=== PATIENT | female | born 1980 | race Caucasian/White ===

== ENCOUNTER 2019-07-18 17:37 | Emergency (ER) | payer BC ==
[~2019-07-18] VITALS: Ht 167.6 cm; Wt 73.5 kg
[~2019-07-18 17:37] MED LIST: BACTRIM DS TAB1 EACH PO; FLEXERIL PO; IBUPROFEN 600600 M1 PO; LEXAPRO 10 MG T10 M2 PO; NORCO 5-325 TA1 EACH PO; OXYCODONE HCL30 MG; PAXIL10 MG PO; PROMETHAZINE12.5 M1 PO; SUBOXONE 8 MG-1 EAC3 SL; TAMSULOSIN HCL0.4 MG PO; VICOPROFEN 2001 EACH PO; XANAX 0.5 MG0.5 M1 PO; XANAX 1 MG TABLE1 MG PO; XANAX XR1 MG PO; ZOFRAN ODT4 MG PO; ZOLOFT100 MG PO; [UNRECOGNIZED DRUG - REMARK]
[2019-07-18] MEDS ORDERED: ADDERALL 10 MG10 MG PO (17:52)
[2019-07-18] MEDS ORDERED: CLONAZEPAM 0.50.5 M1 PO (17:52)
[2019-07-18] MEDS ORDERED: PROAIR HFA8.5 GM INH (17:53)
[2019-07-18] MEDS ORDERED: NAPROSYN500 MG PO (21:32)
[2019-07-18] MEDS ORDERED: NORCO 5-325 TA1 EAC1 PO (21:32)
[2019-07-18] MEDS ORDERED: FLEXERIL PO (21:32)
[2019-07-18 21:50] VITALS: BP 120/65
== END 2019-07-18 21:50 | disposition home or self-care (01) ==
LOC: M.ERS 17:37
DX: M25.511 Pain in right shoulder (principal); M54.6 Pain in thoracic spine; F41.9 Anxiety disorder, unspecified; F31.9 Bipolar disorder, unspecified; F17.210 Nicotine dependence, cigarettes, uncomplicated; Z90.710 Acquired absence of both cervix and uterus; Z98.890 Other specified postprocedural states; Z88.2 Allergy status to sulfonamides

== ENCOUNTER 2020-09-28 17:20 | Emergency (ER) | payer OTHER ==
[~2020-09-28] VITALS: Ht 167.6 cm; Wt 70.8 kg
[~2020-09-28 17:20] MED LIST changes: +ADDERALL 10 MG10 MG PO; +CLONAZEPAM 0.50.5 M1 PO; +NAPROSYN500 MG PO; +NORCO 5-325 TA1 EAC1 PO; +PROAIR HFA8.5 GM INH
[2020-09-28] MEDS ORDERED: HYDROXYZINE HCL25 M2 PO (17:35)
[2020-09-28 17:54] LABS: URINE BILIRUBIN NEGATIVE (Negative); URINE BLOOD 2+ (Negative); URINE COLOR YELLOW; URINE GLUCOSE-RANDOM NEGATIVE (Negative); URINE KETONES TRACE (Negative); URINE LEUKOCYTES-REFLEX 2+ (Negative); URINE NITRITE-REFLEX POSITIVE (Negative); URINE PROTEIN 2+ (Negative); URINE SPECIFIC GRAVITY >= 1.030 (1.005-1.030); URINE UROBILINOGEN 0.2 E.U./dl (0.2-1.0)
[2020-09-28 17:55] LABS: URINE CLARITY CLOUDY
[2020-09-28 17:56] LABS: BACTERIA-REFLEX >30 Many /HPF (None Seen); CASTS None Seen /LPF (None Seen); CRYSTALS None Seen /LPF (None Seen); SQUAMOUS 4-10 Moderate /LPF (0-3); URINE RBC >20 Many /HPF (0-2); URINE WBC-REFLEX >25 Many /HPF (0-5)
[2020-09-28] MEDS ORDERED: CEPHALEXIN500 MG PO (18:11)
[2020-09-28] MEDS ORDERED: PYRIDIUM200 MG PO (18:11)
[2020-09-28] MEDS ORDERED: FLAGYL500 M1 PO (18:49)
[2020-09-28 19:01] VITALS: BP 125/77
== END 2020-09-28 19:02 | disposition home or self-care (01) ==
LOC: M.ERS 17:20
PROVIDERS: Emergency Medicine Emergency Medical Services
DX: N39.0 Urinary tract infection, site not specified (principal); A59.9 Trichomoniasis, unspecified; F17.210 Nicotine dependence, cigarettes, uncomplicated; Z88.2 Allergy status to sulfonamides; Z90.710 Acquired absence of both cervix and uterus; Z98.51 Tubal ligation status; Z98.890 Other specified postprocedural states; Z86.19 Personal history of other infectious and parasitic diseases

== ENCOUNTER 2021-01-03 08:28 | Inpatient (IN) | payer OTHER ==
[~2021-01-03] VITALS: Ht 167.6 cm; Wt 85.3 kg
[~2021-01-03 08:28] MED LIST changes: +CEPHALEXIN500 MG PO; +FLAGYL500 M1 PO; +HYDROXYZINE HCL25 M2 PO; +PYRIDIUM200 MG PO
[2021-01-03 08:35] VITALS: BP 113/67
[2021-01-03 09:18] LABS: ABSOLUTE LYMPHOCYTES 2.4 thou/uL (0.8-5.3); ABSOLUTE MONOCYTES 0.3 thou/uL (0.0-1.2); ABSOLUTE NEUTROPHILS 2.7 thou/uL (1.6-8.1); BASOPHILS 0.5 %; EOSINOPHILS 0.9 %; HEMOGLOBIN 14.3 gm/dL (12.0-15.0); MCH 32.7 pg (26.0-34.0); MCV 93.4 fL (80.0-100.0); MONOCYTES 5.9 %; MPV 8.3 fl. (7.2-11.1); NUCLEATED RBCS 0 /100WBC; PLATELET COUNT* 254 thou/uL (150-400); POLYS 48.7 %; RBC 4.39 mil/uL (4.20-5.00); RDW-CV 12.7 % (10.5-14.5); WBC 5.6 thou/uL (4.0-11.0)
[2021-01-03 09:36] LABS: CALCIUM 7.9 mg/dL (8.5-10.1); CREATININE 0.8 mg/dL (0.6-1.3); POTASSIUM 3.1 mmol/L (3.5-5.1)
[2021-01-03 09:46] LABS: ALBUMIN 3.5 g/dL (3.4-5.0); MAGNESIUM 1.7 mg/dL (1.8-2.4); TOTAL BILIRUBIN 0.6 mg/dL (<0.1-1.0); TOTAL PROTEIN 6.2 g/dL (6.4-8.2)
--- NOTE | 2021-01-03 11:45 | EKG ---
[place] [address] ELECTROCARDIOGRAM REPORT Name: GADIEL GOYAL Room: [place] [address] ADM IN ..#: [id number] Admission: 01/03/21 Attend Phys: Gary Cole Discharge: Date of : 78 Date of Service: 01/03/21 0831 Report #: [id number] THIS REPORT FOR: //name// [facility] ED Test Date: 2021-01-03 Test Time: 08:31:49 Pat Name: GADIEL GOYAL Department: Room: [facility] Gender: F Fulfillment Coordinator: NICOLE : 1980 Requested By: Efra Garcia Order Number: [id number] MD: Juan Carlos Eller Measurements Intervals [place] Rate: 41 P: 6 PA: 180 QRS: 65 QRSD: 106 T: 61 QT: 556 QTc: 460 Interpretive Statements Sinus bradycardia ST elev, probable normal early repol pattern Compared to ECG 02/12/2014 01:33:47 ST (T wave) deviation now present Sinus rhythm no longer present Electronically Signed On 01-03-2021 11:44:58 CDT by Juan Carlos Eller [email or web address] <ELECTRONICALLY SIGNED> By: Henrietta Eller MD, [facility] 01/03/21 1144 0 0 Henrietta Eller MD, [facility] /EPI
[2021-01-03 13:01] VITALS: BP 126/70
[2021-01-03 13:52] VITALS: BP 108/80
[2021-01-03 16:00] VITALS: BP 135/63
--- NOTE | 2021-01-03 17:48 | NUR ---
PT ADMITTED TO ROOM 208 VIA CART FROM ED AT APPROX 1305, REPORT RECEIVED FROM JIMI FIELDS. PT AOX4 BUT C/O SEVERE PAIN TO ABD, DR SON IN ROOM AND ORDERED PRN PAIN MEDS WHICH WERE THEN GIVEN. FLUIDS GOING, PT LATER ADMITTED TO TAKING HER SUBOXONE THIS MORNING BEFORE COMING TO THE ED, MESSAGE SENT TO ONCALL DR ARREAGA ABOUT SUBOXONE AND NARCOTIC PAIN MEDS BEING ADMINISTERED IN THE LAST 12 HOURS. PT ORIENTED TO ROOM AND CALL LIGHT, ADMISSION ASSESSMENT AND HX COMPLETED CHARTED, PT STATES SHE HAS BEEN CLEAN FROM NARCOTIC PAIN MEDS FOR 7 YEARS BUT HAS A HX OF ADDICTION.
[2021-01-04] VITALS (7 sets, daily range): BP systolic 100–136; BP diastolic 55–76
--- NOTE | 2021-01-04 05:38 | NUR ---
PT AO X4 BUT VERY DROWSY ALL SHIFT FROM PAIN MEDS. IVF INFUSING PER ORDER. PT IS RATING PAIN 8/10 DESPITE PAIN MEDS EVERY 2 HRS THIS PM SHIFT. SHE REPORTED NAUSEA FOR WHICH ZOFRAN WAS GIVEN WITH LITTLE RELIEF. PT HAS BEEN UP TO TOILET AD K[place] DESPITE REPEATED REQUEST TO USE CALL LIGHT FOR ASSIST SINCE SHE HAS HAD PAIN MEDS. BED ALARM ON FOR SAFETY, CALL LIGHT WITHIN REACH
[2021-01-04 12:22] LABS: ABSOLUTE LYMPHOCYTES 1.2 thou/uL (0.8-5.3); ABSOLUTE MONOCYTES 0.9 thou/uL (0.0-1.2); ABSOLUTE NEUTROPHILS 11.9 thou/uL (1.6-8.1); BASOPHILS 0.1 %; EOSINOPHILS 0.2 %; HEMATOCRIT 45.4 % (37.0-47.0); HEMOGLOBIN 15.1 gm/dL (12.0-15.0); LYMPHOCYTES 8.7 %; MCH 32.2 pg (26.0-34.0); MCHC 33.2 g/dL (28.0-37.0); MONOCYTES 6.3 %; MPV 8.4 fl. (7.2-11.1); NUCLEATED RBCS 0 /100WBC; PLATELET COUNT* 184 thou/uL (150-400); POLYS 84.7 %; RBC 4.68 mil/uL (4.20-5.00)
[2021-01-04 12:39] LABS: ALBUMIN 2.6 g/dL (3.4-5.0); CALCIUM 7.2 mg/dL (8.5-10.1); CREATININE 0.5 mg/dL (0.6-1.3); POTASSIUM 3.9 mmol/L (3.5-5.1); TOTAL BILIRUBIN 1.4 mg/dL (<0.1-1.0); TOTAL PROTEIN 5.3 g/dL (6.4-8.2)
--- NOTE | 2021-01-04 14:07 | NUR ---
Pt is A&O. Resides at home with family. Independent. No DME. No hx of HH or SNF. Hx of ETOH hx. Per Med Assist, Pt is over income, so does not qualify for [facility]. No weekend dc planned. Manage pain
[2021-01-05 00:15] VITALS: BP 138/72
[2021-01-05 03:58] VITALS: BP 146/66
--- NOTE | 2021-01-05 05:02 | NUR ---
PT A&O X 4. VSS ON RA. PAIN MANAGED WITH MORPHINE, FENTANYL AND SCHEDULED TORADOL. ZOFRAN GIVEN Q4H PER PT REQUEST. NPO EXCEPT SIPS OF WATER. IVF INFUISING. UP INDEPENDENTLY IN ROOM. CALL LIGHT WITHIN REACH. WILL CONTINUE TO MONITOR.
[2021-01-05 05:15] LABS: HEMATOCRIT 42.3 % (37.0-47.0); HEMOGLOBIN 13.9 gm/dL (12.0-15.0); MCHC 32.9 g/dL (28.0-37.0); MCV 97.1 fL (80.0-100.0); RBC 4.35 mil/uL (4.20-5.00); RDW-CV 13.3 % (10.5-14.5); WBC 14.3 thou/uL (4.0-11.0)
[2021-01-05 06:08] LABS: CALCIUM 7.2 mg/dL (8.5-10.1); CREATININE 0.4 mg/dL (0.6-1.3); POTASSIUM 3.5 mmol/L (3.5-5.1)
[2021-01-05 12:00] VITALS: BP 147/77
[2021-01-05 16:00] VITALS: BP 138/76
[2021-01-05 20:30] VITALS: BP 136/82
[2021-01-06 00:40] VITALS: BP 142/74
[2021-01-06 04:02] VITALS: BP 140/77
[2021-01-06 05:25] LABS: ABSOLUTE LYMPHOCYTES 1.1 thou/uL (0.8-5.3); ABSOLUTE MONOCYTES 0.8 thou/uL (0.0-1.2); ABSOLUTE NEUTROPHILS 9.9 thou/uL (1.6-8.1); BASOPHILS 0.1 %; EOSINOPHILS 0.2 %; HEMATOCRIT 37.3 % (37.0-47.0); HEMOGLOBIN 12.7 gm/dL (12.0-15.0); LYMPHOCYTES 9.1 %; MCH 32.4 pg (26.0-34.0); MCV 95.3 fL (80.0-100.0); MONOCYTES 7.1 %; MPV 8.7 fl. (7.2-11.1); NUCLEATED RBCS 0 /100WBC; PLATELET COUNT* 158 thou/uL (150-400); POLYS 83.5 %; RBC 3.91 mil/uL (4.20-5.00); RDW-CV 12.9 % (10.5-14.5); WBC 11.8 thou/uL (4.0-11.0)
[2021-01-06 06:00] LABS: ALBUMIN 1.8 g/dL (3.4-5.0); CALCIUM 7.1 mg/dL (8.5-10.1); CREATININE 0.5 mg/dL (0.6-1.3); TOTAL PROTEIN 4.7 g/dL (6.4-8.2)
[2021-01-06 06:43] LABS: POTASSIUM 2.8 mmol/L (3.5-5.1)
[2021-01-06 06:57] LABS: TOTAL BILIRUBIN 0.5 mg/dL (<0.1-1.0)
--- NOTE | 2021-01-06 08:37 | NUR ---
PATIENT HAS BEEN VERY RESTLESS DURING THE NIGHT AND SLEPT OFF AND ON. VSS ON RA. PATIENT REQUESTING PAIN MEDICATIONS FREQUENTLY. MEDICATIONS GIVEN ORDERED AND CHARTED. PATIENT REMAINS ON CLEAR LIQUID DIET BUT STILL HAVING SOME C/O NAUSEA AT TIMES AFTER PAIN MEDICATIONS. PATIENT STATES SHE IS PASSING SOME GAS NOW. NO BM NOTED. STOOL SOFTNER GIVEN. IV IN RIGHT AC-NS @ 250ML/HR. NOTIFIED OF CRITICAL POTASSIUM THIS AM. PATIENT INSTRUCTED TO USE CALL LIGHT WHEN NEEDING ASSISTANCE. HOURLY ROUNDS MADE. WILL CONTINUE WITH PLAN OF CARE AND NURSING TO MONITOR.
[2021-01-06 12:00] VITALS: BP 117/64
[2021-01-06 16:00] VITALS: BP 125/81
[2021-01-07] VITALS (7 sets, daily range): BP systolic 107–138; BP diastolic 61–80
[2021-01-07 08:01] LABS: HEMATOCRIT 36.5 % (37.0-47.0); HEMOGLOBIN 12.6 gm/dL (12.0-15.0); MCH 32.8 pg (26.0-34.0); MCHC 34.5 g/dL (28.0-37.0); MCV 95.1 fL (80.0-100.0); MPV 8.2 fl. (7.2-11.1); RBC 3.84 mil/uL (4.20-5.00); RDW-CV 12.9 % (10.5-14.5); WBC 9.4 thou/uL (4.0-11.0)
[2021-01-07 08:17] LABS: CALCIUM 7.7 mg/dL (8.5-10.1); CREATININE 0.5 mg/dL (0.6-1.3); POTASSIUM 3.2 mmol/L (3.5-5.1)
--- NOTE | 2021-01-07 08:25 | NUR ---
PATIENT HAS SLEPT OFF AND ON BUT VERY ANXIOUS AND RESTLESS AT TIMES. VSS ON RA. MEDICATIONS GIVEN ORDERED AND CHARTED. PATIENT HAS HAD MULTIPLE LIQUID BOWEL MOVEMENTS DURING THE NIGHT. PATIENT STILL HAVING C/O OF ABDOMINAL AND BACK PAIN AND HAS REMAINED NPO. PAIN MEDICATIONS GIVEN ORDERED AND CHARTED. PATIENT INSTRUCTED TO USE CALL LIGHT WHEN NEEDING ASSISTANCE. HOURLY ROUNDS MADE. WILL CONTINUE WITH PLAN OF CARE AND NURSING TO MONITOR.
--- NOTE | 2021-01-07 12:46 | NUR ---
The patient was advanced to a soft diet. The pain management tolerable. Alert and able to make needs known.
--- NOTE | 2021-01-07 15:24 | NUR ---
Anticipate dc later today pending diet tolerance and pain control. Med Assist to apply for [facility] on Pt's behalf.
--- NOTE | 2021-01-07 18:11 | NUR ---
The patient was discharged.Discharged instructions given. No questions voiced. All belonings removed by the patient. Wheeled to the front by staff.
== END 2021-01-07 18:26 | disposition home or self-care (01) | DRG 440 ==
LOC: M.ERS 08:28 → M.TBA-ER 10:18 → M.2W 12:58
PROVIDERS: Emergency Medicine Emergency Medical Services; Internal Medicine; ADMIT Internal Medicine; ATTEND Internal Medicine
DX: K85.90 Acute pancreatitis without necrosis or infection, unspecified (principal); Z20.822 Contact with and (suspected) exposure to COVID-19; F31.9 Bipolar disorder, unspecified; F41.9 Anxiety disorder, unspecified; E83.42 Hypomagnesemia; E87.6 Hypokalemia; Z98.891 History of uterine scar from previous surgery; Z90.710 Acquired absence of both cervix and uterus; Z86.19 Personal history of other infectious and parasitic diseases; Z79.899 Other long term (current) drug therapy; Z88.2 Allergy status to sulfonamides; Z82.49 Family history of ischemic heart disease and other diseases of the circulatory system; Z83.3 Family history of diabetes mellitus

== ENCOUNTER 2021-05-25 18:25 | Emergency (ER) | payer OTHER, MEDICAID ==
[~2021-05-25] VITALS: Ht 167.6 cm; Wt 64.9 kg
[2021-05-25 19:46] LABS: INFLUENZA A ANTIGEN Negative (Negative); INFLUENZA B ANTIGEN Negative (Negative)
[2021-05-25] MEDS ORDERED: MEDROLDOSEPACK PO (20:17)
[2021-05-25] MEDS ORDERED: PROAIR HFA8.5 GM INH (20:17)
[2021-05-25] MEDS ORDERED: PROMETHAZI6.25 MG/5 PO (20:17)
[2021-05-25] MEDS ORDERED: ONDANSETRON ODT4 MG PO (20:17)
[2021-05-25] MEDS ORDERED: TESSALON PERLE100 MG PO (20:17)
[2021-05-25 20:27] VITALS: BP 137/86
== END 2021-05-25 20:27 | disposition home or self-care (01) ==
LOC: M.ERS 18:25
PROVIDERS: Physician Assistant
DX: J06.9 Acute upper respiratory infection, unspecified (principal); Z20.822 Contact with and (suspected) exposure to COVID-19; F41.9 Anxiety disorder, unspecified; F17.210 Nicotine dependence, cigarettes, uncomplicated; Z79.899 Other long term (current) drug therapy; Z90.710 Acquired absence of both cervix and uterus; Z98.51 Tubal ligation status; Z88.2 Allergy status to sulfonamides